=== PATIENT | female | born 1970 | race Caucasian/White ===

== ENCOUNTER 2016-12-13 11:25 | Emergency (ER) | payer BC ==
[2016-12-13 11:28] VITALS: BP 159/91; BMI 38.9
--- NOTE | 2016-12-13 11:45 | DR.EXTPAIN ---
HPI - Time seen Time seen: 11:35 - PCP Primary Care Physician: Fatuma FLORIAN - HPI Comment HPI Comment: BEAR WEIGHT WALKING ON DISTAL FOOT. ANKLE SWOLLEN LATERAL ASPECT AND FOOT SWOLLEN AND BRUISE LATERAL ASPECT. NO OTHER INJURY REPORTED. - Complaint/Symptoms Chief Complaint Doctor Comments: MISS STAIRS AND FELL INJURING RIGHT ANKLE AND FOOT 3 DAYS AGO. Chief Complaint:: PT. STATES SHE FELL DOWN SOME STAIRS ON SUNDAY, HURTING HER RIGHT ANKLE. PT. IS ABLE TO PARTIALLY BEAR WEIGHT TO FOOT BUT NOT FULLY. BRUISING AND SWELLING NOTED. - Nurses notes reviewed Nurses Notes Review: Yes - Source History Provided: Patient - Mode of arrival Mode of Arrival: Ambulatory - Timing Onset of Chief Complaint: 12/11/16 - Context History of: None - Associated signs and symptoms Associated Signs and Symptoms: Pain, Swelling, Bruising PMH - PMH Past Medical History: Yes Past Medical History: Hypertension, Hypothyroidism Past Medical History Comment: FIBROMYALGIA Past Surgical History: Yes Surgical History: , ADVICE NURSE Surgery, Hysterectomy, Tonsillectomy - Family History History of Family Medical Conditions: Yes Family Medical History: Coronary Artery Disease, Hypertension - Social History Does patient currently use any type of tobacco product: No Have you used tobacco products in the last 12 months: No Type of Tobacco Use: None Does any household member use tobacco: No Alcohol Use: Occasionally Do you use any recreational Drugs:: No Lives With: Spouse Lives Where: Home - infectious screening In the last 2 months have you had wt loss of >10#?: NO Have you had fever, night sweats or hemotysis?: No Have you traveled outside the country in the last 6 months?: No Isolation: Standard ROS - Review of Systems Constitutional: No Symptoms Reported Eyes: No Symptoms Reported ENTM: No Symptoms Reported Respiratoy: No Symptoms Reported Cardiovascular: No Symptoms Reported Gastrointestinal/Abdominal: No Symptoms Reported Genitourinary: No Symptoms Reported Neurological: No Symptoms Reported Musculoskeletal: Right, Ankle, Foot Integumentary: Bruises (RT ANKLE AND FOOT.) Hematologic/Lymphatic: No Symptoms Reported Endocrine: No Symptoms Reported All Other Systems: Reviewed and Negative PE - Vital Signs Vitals: Temperature 97.9 F Pulse Rate 80 Respiratory Rate 16 Blood Pressure 159/91 O2 Sat by Pulse Oximetry 97 - General Limitations: No Limitations General Appearance: Alert - Head Head Exam: Normal Inspection - Eyes Eye exam: Normal Appearance - ENT ENT Exam: Normal External Ear Exam - Neck Neck Exam: Normal Inspection - Chest Chest Inspection: Symmetric Chest Wall Rise - Respiratory Respiratory Exam: Normal Lung Sounds Bilat Respiratory Exam: Bilateral Clear to Auscultation - Cardiovascular Cardiovascular Exam: Regular Rate, Normal Rhythm, Normal Heart Sounds - Abdominal Exam Abdominal Exam: Normal Inspection - Extremities Extremities Exam: Tenderness (RIGHT ANKLE AND FOOTWITH SWELLING), Joint Swelling ( SWELLING AND TENDERNESS LATERAL MALLEOLUS.). negative: Full ROM ( RIGHT ANKLE) - Lower Extremities Ankle Exam: Tenderness ( RIGHT ANKLE LATERAL MALLEOLUS..), Swelling (RT ANKLE LATERAL MALLEOLUS), Erythema (RT). negative: Full ROM (RT) Foot/Toe Exam: Tenderness (RT), Swelling (RT), Dislocation (RT), Erythema (RT) Gait Exam: negative: Unable to bear weight (DIFFICULT TO BEAR WEIGHT) - Neurological Neurological Exam: Alert, Oriented X3 - Psychiatric Psychiatric Exam: Normal Affect, Normal Mood - Skin Skin Exam: Erythema MDM - Differential Diagnosis Differential Diagnosis: Contusion, Fracture, Sprain Course - Treatment Treatment: SEE ORDERS. SPLINT APPLIED. PATIENT HAVE CRUTCHES. - Education/Counseling Education/Counseling: Patient, Education Educated On: Diagnosis, Needs for Follow Up ROR - XRAY XRAY Interpreted by: Radiologist XRAY Findings: REPORT DISCUSS WITH PATIENT. - Diagnosis Discharge Problem: Right ankle sprain Qualifiers: Encounter type: initial encounter Involved ligament of ankle: unspecified ligament Qualified Code(s): S93.401A - Sprain of unspecified ligament of right ankle, initial encounter Contusion of right foot Qualifiers: Encounter type: initial encounter Qualified Code(s): S90.31XA - Contusion of right foot, initial encounter Right foot sprain Qualifiers: Encounter type: initial encounter Qualified Code(s): S93.601A - Unspecified sprain of right foot, initial encounter - Discharge Plan Disposition: 01 HOME, SELF-CARE Condition: Stable Prescriptions: Ketorolac Tromethamine [Toradol Tab] 10 mg PO Q8H PRN #20 tab PRN Reason: Pain - Follow ups/Referrals Follow ups/Referrals: TYSON FLORIAN [Primary Care Provider] - 3 days MENYANELI DAVIS [STAFF PHYSICIAN] - 3 days - Instructions Instructions: Foot Sprain, Foot Contusion, Ankle Sprain, [id number] Additional Instructions: RETURN TO ED IF WORSE.
--- NOTE | 2016-12-13 12:04 | RAD ---
HISTORY: Fall, pain Study: Three views right foot Comparison: None Findings: Normal alignment. No acute fracture or dislocation. The soft tissues are unremarkable. Mild plantar calcaneal spurring. IMPRESSION: 1. No acute osseous abnormality. Reported By:
--- NOTE | 2016-12-13 12:05 | RAD ---
HISTORY: Injury, fall, right ankle pain Study: Right ankle three views Comparison: None Findings: No acute cortical disruption or dislocation can be identified. The ankle mortise remains well align ed. No significant soft tissue swelling or injury can be seen. The visualized portions of the talu s and calcaneus are unremarkable. A well corticated bony density adjacent to the tip of the lateral malleolus is likely related to old trauma and is not felt to represent an acute fracture. IMPRESSION: 1. Negative exam. Reported By:
== END 2016-12-13 12:37 | disposition home or self-care (01) ==
LOC: ER 11:25
DX: S93.401A Sprain of unspecified ligament of right ankle, initial encounter (principal); S90.31XA Contusion of right foot, initial encounter; S93.601A Unspecified sprain of right foot, initial encounter; W10.9XXA Fall (on) (from) unspecified stairs and steps, initial encounter; Y92.9 Unspecified place or not applicable
CPT/HCPCS: 73610; 73630; 99282; 99283